=== PATIENT | female | born 1985 | race Two or more races ===

== ENCOUNTER 2023-04-20 11:15 | Inpatient (IN) | payer BC ==
[~2023-04-20] VITALS: Ht 170.2 cm; Wt 90.7 kg
[2023-04-20] MEDS ORDERED: LORAZEPAM INJ 2 MG/ML VIAL ONE (11:26)
[2023-04-20] MEDS ORDERED: IV NS 0.9% 1,000 ML BAG IV ONE (11:30)
[2023-04-20] MEDS: LEVETIRACETAM (500MG) 1,000 MG in IV NS 0.9% 90 ML IV SCH ×3 (11:30→22:33)
[2023-04-20] MEDS ORDERED: LORAZEPAM INJ 2 MG/ML VIAL IVP ONE (11:30)
[2023-04-20 11:56] LABS: CALCIUM, SERUM 8.5 mg/dL (8.5-10.1); CARBON DIOXIDE 21 mmol/L (21-32); CHLORIDE 104 mmol/L (98-107); CREATININE 0.7 mg/dL (0.6-1.3); GLUCOSE 108 mg/dL (74-106); POTASSIUM 4.1 mmol/L (3.5-5.1); SODIUM SERUM 136 mmol/L (136-145); UREA NITROGEN, BLOOD 9 mg/dL (7-18)
[2023-04-20 12:02] LABS: ALANINE AMINOTRANSFERASE 31 U/L (12-78); ALBUMIN 3.4 g/dL (3.4-5.0); ALCOHOL, BLOOD < 3 mg/dL (0-10); ALKALINE PHOSPHATASE 105 U/L (46-116); ASPARTATE AMINOTRANSFERASE 18 U/L (15-37); BILIRUBIN,DIRECT 0.1 mg/dL (0.0-0.2); BILIRUBIN,TOTAL 0.4 mg/dL (0.2-1.0); PARTIAL THROMBOPLASTIN TIME 30.2 SEC (24.3-34.3); PROTHROMBIN TIME 10.6 SECS (9.2-11.1); TOTAL PROTEIN, SERUM 7.2 g/dL (6.4-8.2)
[2023-04-20 12:04] LABS: BASOPHILS % (AUTO) 0.1 % (0.0-2.0); EOSINOPHILS % (AUTO) 0.4 % (0.0-6.0); HEMATOCRIT 38 % (33-45); HEMOGLOBIN 12.6 g/dL (11.5-14.8); LYMPHOCYTES # (AUTO) 1.4 K/uL (0.8-4.8); LYMPHOCYTES % (AUTO) 19.1 % (20.0-44.0); MEAN CORPUSCULAR HEMOGLOBIN 30 PG (26.0-33.0); MEAN CORPUSCULAR HGB CONC 33 g/dl (31.0-36.0); MEAN CORPUSCULAR VOLUME 91 fL (82-100); MONOCYTES # (AUTO) 0.4 K/uL (0.1-1.30); MONOCYTES % (AUTO) 5.3 % (2.0-12.0); NEUTROPHILS # (AUTO) 5.7 K/uL (1.8-8.9); NEUTROPHILS % (AUTO) 75.1 % (43.0-81.0); PLATELET COUNT (AUTO) 260 K/uL (150-450); RED BLOOD CELL COUNT(AUTO) 4.14 MIL/uL (4.0-5.2); WHITE BLOOD COUNT (AUTO) 7.5 K/uL (4.3-11.0)
[2023-04-20] MEDS ORDERED: LEVOFLOXACIN 750 MG /D5W 150ML PIGGYBACK IV ONE (13:30)
[2023-04-20] MEDS ORDERED: Z GUARD REMEDY 4 OZ OINT TP PRN (15:00)
[2023-04-20] MEDS ORDERED: MAG HYDROX/AL HYDROX/SIMETH 30 ML UDC PO PRN (15:00)
[2023-04-20] MEDS ORDERED: MAGNESIUM HYDROXIDE 30 ML UDC PO PRN (15:00)
[2023-04-20] MEDS ORDERED: ACETAMINOPHEN 325 MG TABLET PO PRN (15:00)
[2023-04-20] MEDS ORDERED: ONDANSETRON HCL/PF 4 MG/2 ML VIAL IVP PRN (15:00)
[2023-04-20] MEDS ORDERED: LEVOFLOXACIN 750 MG /D5W 150ML 150 ML IV ONE (15:08)
[2023-04-20] MEDS: MORPHINE SULFATE INJ 2 MG/ML DISP.SYRIN IV PRN (18:04)
[2023-04-20] MEDS: IV NS 0.9% 1,000 ML IV PRN (18:09)
[2023-04-20] MEDS: LORAZEPAM INJ 2 MG/ML VIAL IV PRN (18:54)
[2023-04-20] MEDS ORDERED: LORAZEPAM INJ 2 MG/ML VIAL IV ONE (19:00)
[2023-04-20 19:05] VITALS: BP 113/80; TEMP 98; O2SAT 96
[2023-04-20 20:00] VITALS: BP 93/59; TEMP 98.9; O2SAT 96
[2023-04-21] VITALS: BP 95/62; TEMP 97.8; O2SAT 94
[2023-04-21 04:00] VITALS: BP 91/56; TEMP 98.6; O2SAT 98
[2023-04-21 06:16] LABS: BASOPHILS % (AUTO) 0.3 % (0.0-2.0); EOSINOPHILS # (AUTO) 0.1 K/uL (0.0-0.7); EOSINOPHILS % (AUTO) 1.8 % (0.0-6.0); HEMATOCRIT 34 % (33-45); HEMOGLOBIN 11.4 g/dL (11.5-14.8); LYMPHOCYTES # (AUTO) 1.7 K/uL (0.8-4.8); LYMPHOCYTES % (AUTO) 24.2 % (20.0-44.0); MEAN CORPUSCULAR HEMOGLOBIN 31 PG (26.0-33.0); MEAN CORPUSCULAR HGB CONC 34 g/dl (31.0-36.0); MEAN CORPUSCULAR VOLUME 91 fL (82-100); MONOCYTES # (AUTO) 0.5 K/uL (0.1-1.30); MONOCYTES % (AUTO) 7.6 % (2.0-12.0); NEUTROPHILS # (AUTO) 4.5 K/uL (1.8-8.9); NEUTROPHILS % (AUTO) 66.1 % (43.0-81.0); PLATELET COUNT (AUTO) 218 K/uL (150-450); RED BLOOD CELL COUNT(AUTO) 3.74 MIL/uL (4.0-5.2); RED CELL DISTRIBUTION WIDTH 12.7 % (11.5-15.0); WHITE BLOOD COUNT (AUTO) 6.9 K/uL (4.3-11.0)
[2023-04-21 06:46] LABS: CREATININE 0.6 mg/dL (0.6-1.3); MAGNESIUM 1.9 mg/dL (1.8-2.4); POTASSIUM 3.6 mmol/L (3.5-5.1)
[2023-04-21 08:00] VITALS: BP 104/67; TEMP 97.8; O2SAT 97
[2023-04-21] MEDS: MORPHINE SULFATE INJ 2 MG/ML DISP.SYRIN IV PRN ×4 (08:16→21:00)
[2023-04-21] MEDS: IV NS 0.9% 1,000 ML IV PRN (10:11)
[2023-04-21] MEDS: LEVETIRACETAM (500MG) 1,000 MG in IV NS 0.9% 90 ML IV SCH ×2 (11:15→22:10)
[2023-04-21 12:00] VITALS: BP 107/75; TEMP 97.9; O2SAT 100
[2023-04-21 16:00] VITALS: BP 111/74; TEMP 97.8; O2SAT 100
[2023-04-21] MEDS: LORAZEPAM INJ 2 MG/ML VIAL IV PRN (19:18)
[2023-04-21 20:00] VITALS: BP 99/66; TEMP 98.6; O2SAT 96
[2023-04-21 21:07] LABS: AMPHETAMINE, URINE NEGATIVE (NEGATIVE); BARBITURATE, URINE NEGATIVE (NEGATIVE); CANNABINOID, URINE NEGATIVE (NEGATIVE); COCCAINE, URINE NEGATIVE (NEGATIVE); PHENCYCLIDINE SCREEN,URINE NEGATIVE (NEGATIVE)
[2023-04-21 21:33] LABS: BENZODIAZEPINE, URINE POSITIVE (NEGATIVE); OPIATE, URINE POSITIVE (NEGATIVE)
[2023-04-21 21:36] LABS: PREGNANCY TEST URINE QUAL NEGATIVE (NEGATIVE)
[2023-04-22] VITALS: BP 98/58; TEMP 98.6; O2SAT 100
[2023-04-22] MEDS: MORPHINE SULFATE INJ 2 MG/ML DISP.SYRIN IV PRN (02:48)
[2023-04-22 04:00] VITALS: BP 96/60; TEMP 98.1; O2SAT 98
[2023-04-22] MEDS: IV NS 0.9% 1,000 ML IV PRN (04:14)
[2023-04-22 06:08] LABS: BASOPHILS % (AUTO) 0.4 % (0.0-2.0); EOSINOPHILS # (AUTO) 0.2 K/uL (0.0-0.7); EOSINOPHILS % (AUTO) 2.5 % (0.0-6.0); HEMATOCRIT 33 % (33-45); HEMOGLOBIN 11.1 g/dL (11.5-14.8); LYMPHOCYTES # (AUTO) 1.8 K/uL (0.8-4.8); LYMPHOCYTES % (AUTO) 25.3 % (20.0-44.0); MEAN CORPUSCULAR HEMOGLOBIN 31 PG (26.0-33.0); MEAN CORPUSCULAR HGB CONC 34 g/dl (31.0-36.0); MEAN CORPUSCULAR VOLUME 91 fL (82-100); MONOCYTES # (AUTO) 0.5 K/uL (0.1-1.30); MONOCYTES % (AUTO) 6.8 % (2.0-12.0); NEUTROPHILS # (AUTO) 4.6 K/uL (1.8-8.9); PLATELET COUNT (AUTO) 244 K/uL (150-450); RED BLOOD CELL COUNT(AUTO) 3.64 MIL/uL (4.0-5.2); RED CELL DISTRIBUTION WIDTH 12.7 % (11.5-15.0); WHITE BLOOD COUNT (AUTO) 7.1 K/uL (4.3-11.0)
[2023-04-22 06:25] LABS: CALCIUM, SERUM 8.1 mg/dL (8.5-10.1); CREATININE 0.6 mg/dL (0.6-1.3); PHOSPHORUS 3.6 mg/dL (2.5-4.9); POTASSIUM 3.6 mmol/L (3.5-5.1)
[2023-04-22 08:00] VITALS: BP 100/64; TEMP 98.8; O2SAT 98
[2023-04-22] MEDS ORDERED: LEVE1000 PO (09:13)
[2023-04-22] MEDS: LEVETIRACETAM (500MG) 1,000 MG in IV NS 0.9% 90 ML IV SCH (10:46)
[2023-04-22] MEDS ORDERED: ASPIRIN 81 MG TAB.CHEW PO SCH (13:00)
== END 2023-04-22 12:09 | disposition home or self-care (01) | DRG 101 ==
LOC: ER 11:37 → TELE-TD 14:43 → TELE1 15:29
PROVIDERS: ADMIT Internal Medicine; ATTEND Internal Medicine
DX: G40.909 Epilepsy, unspecified, not intractable, without status epilepticus (principal); I69.354 Hemiplegia and hemiparesis following cerebral infarction affecting left non-dominant side; Z91.041 Radiographic dye allergy status; Z90.49 Acquired absence of other specified parts of digestive tract; Z95.820 Peripheral vascular angioplasty status with implants and grafts; E66.9 Obesity, unspecified; Z68.31 Body mass index [BMI] 31.0-31.9, adult; R91.8 Other nonspecific abnormal finding of lung field; R00.0 Tachycardia, unspecified
CPT/HCPCS: 36415; 70450-TC; 71045-TC; 80048-TC; 80076-TC; 82962-TC; 83735-TC; 84100-TC; 84703-TC; 85025-TC; 85730-TC; 87040-TC; A4223; G0378; G0480; J1953; J1956; J2060; J2270; J7030